=== PATIENT | female | born 1990 | race Two or more races ===

== ENCOUNTER 2025-04-12 11:34 | Emergency (ER) | payer OTHER ==
[~2025-04-12] VITALS: Ht 172.7 cm; Wt 85.7 kg
[2025-04-12] MEDS ORDERED: PRENATE DHA SO1 EAC1 PO (12:23)
[2025-04-12 14:34] LABS: BASO % 0.3 % (0.1-1.2); EOS # 0.06 (0.04-0.54); EOS % 0.8 % (0.7-7.0); HEMATOCRIT 37.6 % (34.1-44.9); HEMOGLOBIN 12.3 g/dL (11.2-15.7); LYMPH # 2.03 (1.18-3.74); LYMPH % 27.4 % (19.3-53.1); MEAN CORPUSCULAR HEMOGLOBIN 27.6 pg (25.6-32.2); MONO % 6.8 % (4.7-12.5); NEUT # 4.75 (1.56-6.13); NEUT % 64.2 % (34.0-71.1); PLATELET COUNT 296 K/uL (163-369); RED BLOOD COUNT 4.45 M/uL (3.93-5.22)
[2025-04-12 15:09] LABS: CREATININE SERUM 0.56 mg/dL (0.55-1.02); GFR 125.45; POTASSIUM 3.65 mEq/L (3.5-5.1)
[2025-04-12 16:25] LABS: URINE APPEARANCE Clear; URINE BILIRRUBIN Negative (NEGATIVE); URINE BLOOD Negative; URINE COLOR Yellow; URINE GLUCOSE Negative (NEGATIVE); URINE KETONE Negative (NEGATIVE); URINE LEUKOCYTE Moderate; URINE NITRATE Negative; URINE PROTEIN Negative (NEGATIVE)
[2025-04-12 16:28] LABS: URINE EPITHELIAL CELLS 35.9 uL (0.0-38.8); URINE WBC 9.3 uL (0.0-23.2)
== END 2025-04-12 19:05 | disposition home or self-care (01) ==
LOC: ER 12:29
PROVIDERS: General Practice
DX: O20.9 Hemorrhage in early pregnancy, unspecified (principal); Z3A.12 12 weeks gestation of pregnancy